=== PATIENT | female | born 1990 | race Two or more races ===

== ENCOUNTER 2024-06-29 14:46 | Emergency (ER) | payer OTHER ==
[~2024-06-29] VITALS: Ht 152.4 cm; Wt 53.5 kg
[2024-06-29 15:55] VITALS: BP 103/70; O2SAT 99
[2024-06-29 19:28] LABS: HEMATOCRIT 38.6 % (36.0-45.00); HEMOGLOBIN 13.4 g/dL (12.0-15.00); MEAN CELL VOLUME 89.6 fL (80.00-100.00); MEAN CORPUSCULAR HEMOGLOBIN 31.1 pg (27.00-32.0); MEAN CORPUSCULAR HGB CONC 34.7 g/dl (32.0-36.0); PLATELET COUNT 272 K/uL (150-450); RED BLOOD COUNT 4.31 M/uL (4.00-6.00)
[2024-06-29 20:29] LABS: URINE APPEARANCE Clear; URINE BILIRRUBIN Negative (NEGATIVE); URINE BLOOD Negative; URINE COLOR Yellow; URINE GLUCOSE Negative (NEGATIVE); URINE KETONE Negative (NEGATIVE); URINE LEUKOCYTE Negative; URINE NITRATE Negative; URINE PROTEIN Negative (NEGATIVE); URINE UROBILINOGEN 0.2 E.U./dl
[2024-06-29 20:33] LABS: URINE BACTERIA 539.1 uL (0.0-1933); URINE EPITHELIAL CELLS 5.7 uL (0.0-38.8); URINE WBC 2.4 uL (0.0-23.2)
[2024-06-29 20:39] LABS: URINE RBC 1.5 uL (0.0-20.8)
[2024-06-29] MEDS ORDERED: AMOX1TAB5 PO (21:26)
== END 2024-06-29 21:41 | disposition home or self-care (01) ==
LOC: ER 14:46
DX: H83.09 Labyrinthitis, unspecified ear (principal); J00 Acute nasopharyngitis [common cold]; Z20.822 Contact with and (suspected) exposure to COVID-19